=== PATIENT | female | born 1975 | race Caucasian/White ===

== ENCOUNTER → 2018-08-13 11:30 | Outpatient (CLI) | payer BC, SELFPAY ==
--- NOTE | 2018-08-13 | EMB_PTH ---
PATIENT: CORAL TORRES LOC: [facility] U#:[id number] AGE/SX: 50/F ROOM: RE08/13/[address]: Dr. Vasquez Mendosa MD : 1975 BED: DIS: SPEC #: [id number] RECD: 08/14/18 10:59 STATUS: SONAL ADHIKARIKeiko #: [id number] DINA: 08/13/18 00:[address]: Vasquez Mendosa DEPT: SURGICAL PATHOLOGY RECD BY: Dallas Mann ENTERED: 08/14/18 12:21 SP TYPE: ENDOM BX/C NILDA DR: Dr. Torres Leahy MD Tissues: Endometrium, NOS Procedures: Surgery Specimen Level IV HEADER OPERATION: Endometrial biopsy PRE-OP DIAGNOSIS: R93.8 TISSUE SUBMITTED: Endometrial biopsy MICROSCOPIC DIAGNOSIS Endometrial biopsy: Proliferative endometrium with glandular and stromal breakdown. SJ:gilmer 08/15/18 MICROSCOPIC DESCRIPTION Slides are reviewed. GROSS DESCRIPTION Received is one container labeled with the patient's name and not further designated. The specimen consists of multiple fragments of hemorrhagic soft tissue that in aggregate measure 3 x 2.5 x 0.3 cm. The entire specimen is submitted in one cassette. / SJ:gilmer 08/14/18 TC:5 CPT: 65642
[2018-08-23 09:03] LABS: HPV Reflexed? NOT INDICATED
== END ==
PROVIDERS: Family Provider Family Medicine; PCP Family Medicine; Visit Provider Obstetrics & Gynecology
DX: N85.8 Other specified noninflammatory disorders of uterus (principal); Z12.4 Encounter for screening for malignant neoplasm of cervix
CPT/HCPCS: 88175; 88305; G0145

== ENCOUNTER → 2022-12-06 | Outpatient (CLI) | payer BC, SELFPAY ==
--- NOTE | 2022-12-06 11:45 | EMB_PTH ---
PATIENT: CORAL TORRES LOC: [facility] U#:[id number] AGE/SX: 47/F ROOM: RE12/06/[address]: Dr. Bobby Santamaria MD : 1975 BED: DIS: 12/06/2022 SPEC #: [id number] RECD: 12/06/22 12:26 STATUS: SONAL REKeiko #: [id number] DINA: 12/06/22 11:[address]: Bobby Santamaria DEPT: SURGICAL PATHOLOGY RECD BY: Teresa Ferrer ENTERED: 12/06/22 13:56 SP TYPE: ENDOM BX/C NILDA DR: Dr. Torres Lehay MD Tissues: Endometrium, NOS Procedures: Surgery Specimen Level IV HEADER OPERATION: Endometrial biopsy PRE-OP DIAGNOSIS: Abnormal uterine bleeding TISSUE SUBMITTED: Endometrial biopsy MICROSCOPIC DIAGNOSIS Endometrial biopsy: Rare minute fragments of benign glandular epithelium, blood and mucus. See comment. LIANA:gilmer 12/07/2022 COMMENT The specimen is insufficient for further evaluation. Clinical correlation and appropriate follow up are necessary. MICROSCOPIC DESCRIPTION Slides are reviewed. GROSS DESCRIPTION Received in fixative is one container labeled with the patient's name and designated endometrial biopsy. The specimen consists of multiple irregular fragments of mucoid kruger tissue that in aggregate measure 3.5 x 2.5 x 0.1 cm. The specimen is totally submitted in one cassette. / AM:gilmer 12/06/2022 TC: Cannot code CPT: 77739
[2022-12-08 15:21] LABS: HPV APTIMA, High Risk Negative (Negative)
== END | disposition home or self-care (01) ==
LOC: WOBLAB 12:06 → LABSPEC 14:25
PROVIDERS: PCP Family Medicine; Visit Provider Obstetrics & Gynecology
DX: Z12.4 Encounter for screening for malignant neoplasm of cervix (principal); N93.9 Abnormal uterine and vaginal bleeding, unspecified
CPT/HCPCS: 87624; 88175; 88305; G0145